=== PATIENT | male | born 1990 | race Caucasian/White ===

== ENCOUNTER 2016-09-09 09:29 | Observation (INO) | payer BC ==
[2016-09-09] MEDS ORDERED: Morphine INJ* 4 MG/ML 1 ML SYRINGE IV ONE (10:25)
[2016-09-09] MEDS ORDERED: Ondansetron INJ* 2 MG/ML VIAL IV ONE (10:25)
[2016-09-09] MEDS ORDERED: NS 0.9% 1000 ML* 1,000 ML IV ONE (10:25)
[2016-09-09] MEDS ORDERED: Ondansetron INJ* 2 MG/ML VIAL IV PRN ×2 (10:53→20:12)
--- NOTE | 2016-09-09 11:02 | ED ---
Yony Jenkins Alfonso, scribed for Perfecto Feliciano MD on 09/09/16 at 1027 . Abdominal Pain/Male - HPI Summary HPI Summary: This patient is a 25 year old M BIBA to [facility] accompanied by mother with a chief complaint of RLQ abd pain since 2330 last night. He was diagnosed with acute appendicitis at [facility] earlier today and transferred to [facility]. The CC is described as sharp. Pt rates the pain 8/10 in severity. Symptoms aggravated by eating and alleviated by nothing. Pt last ate at 2330 last night. PSHx of cholecystectomy. - History of Current Complaint Chief Complaint: EDAbdPain Stated Complaint: ABD PAIN COMING FROM SCHULYER Time Seen by Provider: 09/09/16 09:53 Hx Obtained From: Patient Onset/Duration: Sudden Onset, Lasting Hours - 2330 last night, Still Present Timing: Constant Severity Initially: Severe Severity Currently: Severe Pain Intensity: 8 Pain Scale Used: 0-10 Numeric Location: Discrete At: RLQ Character: Sharp Aggravating Factor(s): Food Alleviating Factor(s): Nothing - Allergies/Home Medications Allergies/Adverse Reactions: Allergies Allergy/AdvReac Type Severity Reaction Status Date / Time No Known Allergies Allergy Verified 09/09/16 10:29 PMH/Surg Hx/FS Hx/Imm Hx Opthamlomology History: Denies: Hx Legally Blind EENT History: Denies: Hx Deafness Infectious Disease History: No Infectious Disease History: Denies: Traveled Outside the [place] in Last 30 Days - Family History Known Family History: Positive: Diabetes, Other - Cancer - Social History Alcohol Use: None Substance Use Type: Reports: None Smoking Status (MU): Never Smoked Tobacco Review of Systems Constitutional: Negative Positive: Abdominal Pain - RLQ sharp All Other Systems Reviewed And Are Negative: Yes Physical Exam - Summary Physical Exam Summary: VITAL SIGNS: Reviewed. GENERAL: Patient is a well-developed and nourished male who is lying comfortable in the stretcher. Patient is not in any acute respiratory distress. HEAD AND FACE: Normocephalic and atraumatic. EYES: PERRLA, EOMI x 2, No injected conjunctiva. EARS: Hearing grossly intact. Ear canals and tympanic membranes are WNL. MOUTH: Oropharynx within normal limits. NECK: Supple, trachea is midline, no adenopathy, no JVD. CHEST: Symmetric, no tenderness at palpation LUNGS: Clear to auscultation bilaterally. No wheezing or crackles. CVS: RRR, S1 and S2 present, no murmurs or gallops appreciated. ABDOMEN: RLQ tenderness with guarding and no rebound. No signs of distention. Positive bowel sounds. No abdominal bruit or pulsations. EXTREMITIES: FROM in all major joints, no edema, no cyanosis or clubbing. NEURO: Alert and oriented x 3. No acute neurological deficits. Speech is normal. SKIN: Dry and warm Triage Information Reviewed: Yes Vital Signs On Initial Exam: Initial Vitals Temp Pulse Resp BP Pulse Ox 96.8 F 76 20 129/71 97 09/09/16 09:37 09/09/16 09:37 09/09/16 09:37 09/09/16 09:37 09/09/16 09:37 Vital Signs Reviewed: Yes Diagnostics - Vital Signs Vital Signs Temp Pulse Resp BP Pulse Ox 09/09/16 09:42 96.1 F 83 18 129/71 99 09/09/16 09:37 96.8 F 76 20 129/71 97 - Laboratory Lab Statement: Any lab studies that have been ordered have been reviewed, and results considered in the medical decision making process. Abdominal Pain Fem Course/Dx - Course Course Of Treatment: This patient is a 25 year old M BIBA to [facility] accompanied by mother with a chief complaint of RLQ abd pain since 2330 last night. He was diagnosed with acute appendicitis at [facility] earlier today and transferred to [facility]. The CC is described as sharp. Pt rates the pain 8/10 in severity. Symptoms aggravated by eating and alleviated by nothing. Pt last ate at 2330 last night. PSHx of cholecystectomy. Assessment/Plan: This patient was seen at [facility] and diagnosed with acute appendicitis from CT scan. His WBC is 17 and vital signs are stable. The patient reports the pain is 8/10 in the RLQ. Therefore, the patient was given morphine 4mg IV, Zofran, and IV fluids. I discussed the finding with Doug Lynn who accepted the patient for admission. Pt is hemodynamically stable and A&Ox3. - Diagnoses Differential Diagnosis/HQI/PQRI: Appendicitis Provider Diagnoses: Acute appendicitis - Provider Notifications Discussed Care Of Patient With: Clem Camacho Time Discussed With Above Provider: 10:34 Instructed by Provider To: Other - Consulted Dr. Cmaacho (surgeon) who accepts patient for admission. Discharge - Discharge Plan Condition: Stable Disposition: ADMITTED TO [facility] The documentation as recorded by the Yony hayward Alfonso accurately reflects the service I personally performed and the decisions made by me, Perfecto Feliciano MD.
[2016-09-09] MEDS: HYDROmorphone* 1 MG/ML 1 ML SYR IV SLOW PU PRN ×2 (12:14→18:00)
--- NOTE | 2016-09-09 16:02 | HP ---
ADMITTING HISTORY AND PHYSICAL: DATE OF ADMISSION/SURGERY: 09/09/16. PATIENT OF: Dr. Clem Camacho * (DICTATED BY AMOR PACKER) REASON FOR ADMISSION: Right lower quadrant abdominal pain and acute appendicitis. HISTORY OF PRESENT ILLNESS: Teo is a pleasant 25-year-old gentleman who was brought to the emergency room at [facility] earlier today with complaints of right lower quadrant abdominal pain. The patient was seen and evaluated at [facility] earlier today where he was diagnosed with acute appendicitis and was transferred to [facility] for further evaluation and to discuss surgery. The patient describes his symptom as being sharp episodes of right lower quadrant pain that started roughly last night and described it as sharp pain, with on and off severity reaching 8/10, localized to the right lower quadrant, aggravated by eating and movement and associated with some nausea and one episode of vomiting last night. He denies any fever or chills, changes in the color of urine or stool or history of kidney stones. It started roughly around Wednesday and was more periumbilical and right upper quadrant. It essentially subsided, but then 2 days later it started coming back. He denies any change in the bowel habits. He does have history of gallbladder surgery approximately 3 or 4 years ago. The patient was seen and evaluated in the emergency room and he had a CT scan at [facility] that was consistent with acute appendicitis for which he will be admitted to discuss a possible surgical intervention. PAST MEDICAL HISTORY: Essentially unremarkable He denies any history of heart , lung, liver or kidney disease. PAST SURGICAL HISTORY: Significant for laparoscopic cholecystectomy 3 years ago. CURRENT MEDICATIONS: He takes no medications at home. ALLERGIES: He has no known drug allergies. FAMILY HISTORY: Noncontributory. SOCIAL HISTORY: The patient is a nonsmoker, who drinks alcohol rarely and caffeine intake is minimal. REVIEW OF SYSTEMS: See HPI, otherwise negative. He denies any headache, dizziness, syncope, palpitations, chest pain, or blurred vision. No difficulty breathing, orthopnea, fever, chills, or recent weight loss. He admits to right lower quadrant abdominal pain with associated nausea and one episode of vomiting last night but denies any changes in bowel habits or bleeding per rectum. No dysuria, hematuria, urinary frequency or flank pain. PHYSICAL EXAMINATION GENERAL: He is a pleasant, healthy appearing young male, moderately obese but no acute distress or discomfort at the time of admission. VITAL SIGNS: Most recent set of vitals revealed a temperature of 100.1, pulse of 90, blood pressure 133/67, respirations 20, O2 sat 100% on room air. HEENT: Sclerae anicteric. PERRLA. EOMs intact. Oropharynx is pink, moist, there was no exudate. NECK: Supple. Trachea is midline. No cervical adenopathy or thyromegaly. LUNGS: Clear to auscultation bilaterally. No rales, wheezes, or rhonchi noted. HEART: Regular rate and rhythm. Normal S1 and S2 without rubs, murmurs, or gallops. BACK: With normal curvature. No CVA tenderness. ABDOMEN: Soft, nondistended. There is moderate right lower quadrant tenderness on light palpation noted. There is moderate guarding but no rigidity or rebound tenderness noted. Old scars from prior laparoscopic cholecystectomy noted. No evidence of ventral hernia and no other masses or lesions or hepatosplenomegaly. EXTREMITIES: Without cyanosis, clubbing or edema. RECTAL EXAM: Deferred at this time. NEUROLOGIC: Grossly intact. IMPRESSION: A 25-year-old gentleman with signs and symptoms as well as a CT scan findings consistent with acute appendicitis. PLAN: We went on and discussed with the patient proceeding with a laparoscopic appendectomy. The rationale, indications, risks, and benefits of surgery were discussed with him today. Risks include but not limited to infection, bleeding , or injury to adjacent structures. He seems to be comfortable at this point. We will provide IV antibiotics for prophylaxis and likely to be taken later this afternoon to the operating room for laparoscopic appendectomy. We will follow him up accordingly. AMOR PACKER [id number]/[facility] #: [id number] [facility] HOSPITALYadi
[2016-09-09] MEDS ORDERED: HYDROmorphone* 1 MG/ML 1 ML SYR ONE (17:59)
[2016-09-09] MEDS ORDERED: fentaNYL* 50 MCG/ML 2 ML VIAL (100 MCG VIAL) ONE ×2 (18:04→20:15)
[2016-09-09] MEDS ORDERED: Propofol* 10 MG/ML 20 ML BTL IV PUSH ONE (18:04)
[2016-09-09] MEDS ORDERED: Ondansetron INJ* 2 MG/ML VIAL ONE ×2 (18:04→18:16)
[2016-09-09] MEDS ORDERED: Ketorolac INJ* 30 MG/ML 1 ML VIAL ONE (18:04)
[2016-09-09] MEDS ORDERED: Dexamethasone IV* 4 MG/ML 1 ML (4 MG) ONE (18:04)
[2016-09-09] MEDS ORDERED: Lidocaine 2% PF * 5 ML VIAL ONE (18:05)
[2016-09-09] MEDS ORDERED: KETAMINE HCL* 50 MG/ML 10 ML VIAL ONE (18:05)
[2016-09-09] MEDS ORDERED: Atracurium* 10 MG/ML 10 ML VIAL ONE (18:05)
[2016-09-09] MEDS ORDERED: Midazolam* 1 MG/ML 5 ML VIAL (5 MG) ONE (18:05)
[2016-09-09] MEDS ORDERED: ceFAZolin 2 GM PREMIX(*) 2 GM/50 ML BAG IVPB ONE (19:09)
[2016-09-09] MEDS ORDERED: metroNIDAZOLE IV 500 MG/100ML* 500 MG/100 ML BAG IVPB ONE (19:09)
[2016-09-09] MEDS ORDERED: Bupivacaine 0.25% EPI 200,000* 30 ML SDV ONE (19:14)
[2016-09-09] MEDS ORDERED: HYDROmorphone* 1 MG/ML 1 ML SYR IV PRN (20:12)
[2016-09-09] MEDS ORDERED: fentaNYL* 50 MCG/ML 2 ML VIAL (100 MCG VIAL) IV PRN (20:12)
[2016-09-09] MEDS ORDERED: DiMENhydriNATE IV* 50 MG/ML VIAL IV PUSH PRN (20:12)
--- NOTE | 2016-09-09 20:47 | SURGPN ---
Brief Operative Note - Surgery Procedures: Pre-OP Diagnoses: acute appendicitis Post-op Diagnosis: same Procedure: Laparoscopic appendectomy Surgeon: Doug Asst: Suhail Fitch Anethesia: MAURO Flores EBL: minimal IVF: 1700cc crystalloid Specimen: appendix Drains: none
--- NOTE | 2016-09-10 08:10 | PN ---
Progress Note - Progress Note Date of Service: 09/10/16 SOAP: Subjective: This is a 25-year old male POD#1 s/p laparoscopic appendectomy. - Patient is doing well, denies any complaints - Reports only a small amount of BM last night, denies flatus. - Tolerating broth and cracker well w/o n/v. Having appetite and wants to have breakfast. - Reports pain only with movement. Objective: - WNWD male in NAD, appears comfortable in bed. - VSS, afebrile. - Heart: RRR, no murmurs - Lungs: CTA bilaterally. - Abdomen: Dressings CDI, trace of blood under dressing for lower lap site. Hypoactive bowel sound present Round, soft, non-distended, tender to palpation in RLQ. 09/09/16 09/09/16 09/09/16 21:01 21:30 21:53 Temperature 97.9 F 98.2 F 98.0 F 09/09/16 09/09/16 09/09/16 22:16 22:54 23:49 Temperature 98.0 F 98.7 F 98.8 F 09/10/16 09/10/16 09/10/16 02:03 03:36 07:26 Temperature 98.7 F 98.7 F 98.1 F Intake & Output 09/09/16 09/10/16 09/10/16 22:59 06:59 14:59 Intake Total 2873 968 Output Total 450 2675 500 Balance 3830 -7764 -500 Intake: IV Fluids 2768 968 LR 2499 968 IVPB 105 LR 105 Output: Urine 450 2675 500 Other: Estimated Blood Loss MINIMAL Comment Assessment: - POD#1 s/p laparoscopic appendectomy for acute appendicitis: patient is stable and doing well. Plan: - Possible discharge to home today.
--- NOTE | 2016-09-10 11:13 | PN ---
Progress Note - Progress Note Date of Service: 09/10/16 Note: Surgery Progress: S: POD #1. Min pain. Waldemar po well. Passing flatus. O: Vital Signs - 8 hr 09/10/16 09/10/16 09/10/16 03:36 07:24 07:26 Temperature 98.7 F 98.1 F Pulse Rate 74 83 Respiratory 16 18 Rate Blood Pressure 115/60 119/75 (mmHg) O2 Sat by Pulse 98 98 Oximetry 09/10/16 08:37 Temperature Pulse Rate Respiratory 18 Rate Blood Pressure (mmHg) O2 Sat by Pulse Oximetry Intake and Output Last 24 Hours 09/08/16 09/09/16 09/10/16 09/11/16 06:59 06:59 06:59 06:59 Intake Total 4841 360 Output Total 3575 500 Balance 1266 -140 Weight 230 lb Intake: IV Fluids 4736 LR 3467 IVPB 105 LR 105 Oral 360 Output: Urine 3575 500 Other: Estimated Blood Loss MINIMAL Comment Heart: reg Lungs: clear Abd: +BS; lap sites ok; soft; min tenderness A/P: s/p lap appy for acute,nonruptured appendicitis; discussed w/ Dr. Camacho. He apparently has a positive blood cx from [facility] (c/w S. aureus). Will d/c on Augmentin x 5d. Instructions reviewed.
[2016-09-10 11:41] VITALS: BP 124/69
--- NOTE | 2016-09-10 14:09 | OP ---
DATE OF OPERATION: 09/09/16 - ROOM #340 DATE OF : 88 SURGEON: Clem Camacho MD PRESIDENT CELEBRITY ACQUISTION: AMOR Jang student. ANESTHESIOLOGIST: Dr. Flores. ANESTHESIA: General anesthesia. PRE-OP DIAGNOSIS: Acute appendicitis. POST-OP DIAGNOSIS: Acute appendicitis. OPERATIVE PROCEDURE: Laparoscopic appendectomy. ESTIMATED BLOOD LOSS: Minimal. FLUIDS: 800 cc of crystalloid fluid given. SPECIMEN: Appendix. COUNTS: Lap pad count and instrument count correct at the end of the procedure. INDICATIONS: The patient was identified in the preoperative area. I discussed the case with him, going over the risks, benefits, and alternatives. I reviewed his chart in its entirety. I examined his abdomen. I discussed the case with AMOR Ta as well as the emergency room physician. I went over the possible complications, which included not limited to bleeding, infection, bowel injury, need for additional procedures, need for open procedures and abscess formation. Patient signed consent. His questions were answered. DESCRIPTION OF PROCEDURE: Patient was marked, brought to the operating room, placed on the operating table in supine position. Preoperative antibiotics were given. Sequential devices were placed in bilateral lower extremities. General anesthesia was induced. The patient's abdomen was clipped of hair and prepped and draped in the standard surgical fashion. A time-out was performed. Folds of the umbilicus were elevated anteriorly and a Veress needle was inserted into the abdominal cavity, which was then allowed to insufflate to a pressure of 15 mmHg. The patient tolerated the insufflation well. A right upper quadrant incision was made and a 12-mm trocar was inserted through this. Laparoscope was inserted and there was no evidence of injury from the trocar insertion or from the Veress needle, which was then removed. Additional 5 mm trocars were placed in the umbilical site and also in the suprapubic area. Table was re-positioned to Trendelenburg with right side up. Omentum was attached to a firm appendiceal tip. This was bluntly removed, exposing the tip of the appendix. The cecum was identified as well as the terminal ileum, but we could appreciate the base of the appendix. For this reason, we took the lateral attachments of the appendix as well as of the cecum to rule out the cecum to be rotated more medially. A window was made through much of the mesoappendix and a 45-mm sheets ADDY stapler was fired across this. This allowed us to pull the appendix more anteriorly and medially. An additional vasculature was taken with a clip vp analysis and this now exposed the full appendiceal base. This was healthy tissue and we ligated it with 45-mm yadav ADDY stapling device. It was placed in an endoscopic retrieval bag. We suctioned off the site of the staple line. There was no bleeding or enteric contents. Review of the pelvis showed some murky fluid. This was suctioned off as well. The appendix was then removed through the right upper quadrant port site. The abdomen was allowed to collapse. Trocar was removed under direct vision and all three skin incisions were reapproximated with 4-0 Monocryl subcuticular sutures followed by Steri-Strips and sterile dressing. The patient tolerated the procedure well and was transferred to PACU in stable condition. [id number]/[facility] #: [id number] MTDD
--- NOTE | 2016-09-10 22:58 | DS ---
CC: [facility] in [place] * DISCHARGE SUMMARY: DATE OF ADMISSION: 09/09/16 DATE OF DISCHARGE: 09/10/16 ATTENDING PHYSICIAN: Dr. Camacho * (DICTATED BY AMOR CHEW) HOSPITAL COURSE: Please refer to admission history and physical for admission details. The patient was taken to the operating room on 09/09/16, where he underwent laparoscopic appendectomy with Dr. Camacho for acute non-ruptured appendicitis. He has had an otherwise uneventful postoperative course with improvement in pain and tolerance of diet. He has actually not required any narcotic since midnight last night. PHYSICAL EXAMINATION: Vital Signs: Temperature 98.1, blood pressure 119/75, pulse 83, respirations 18, room air saturation 98%. General: Well appearing and in no acute distress. Skin: Warm and dry. Heart: Regular rate and rhythm. Lungs: Clear to auscultation. Abdomen: Somewhat obese. Laparoscopic port sites covered with Tegaderm dressings with small amount of sanguineous drainage in the suprapubic wound. Abdomen is soft with mild incisional tenderness only. LABORATORY DATA: Blood cultures obtained at [facility] apparently are positive for a gram-positive cocci and clusters consistent with Staph aureus. ASSESSMENT: Status post laparoscopic appendectomy for acute non-ruptured appendicitis; positive blood culture. PLAN: The patient will be discharged today on oral Augmentin 875 mg b.i.d. x5 days. He will be seen in the office in 1 week, followup instructions were reviewed regarding wound care and activity. AMOR PADRON [id number]/[facility] #: [id number] [facility] MEDICAL CENTERYadi
== END 2016-09-10 12:05 | disposition home or self-care (01) ==
LOC: ED 09:29 → SSU 10:54
PROVIDERS: ADMIT Surgery; ATTEND Surgery
PROC: 0DTJ4ZZ Resection of Appendix, Percutaneous Endoscopic Approach (ICD-10-PCS; principal; 2016-09-09 18:30)
DX: K35.80 Unspecified acute appendicitis (principal)
CPT/HCPCS: 88304; 96365; 96375; 96376; 99283; C1776; G0378; J0690; J1100; J1170; J1885; J2250; J2270; J2405; J2704; J3010